=== PATIENT | male | born 1940 | race Hispanic/Latino ===

== ENCOUNTER 2020-10-31 16:54 | Inpatient (IN) | payer MEDICARE, OTHER, SELFPAY ==
[~2020-10-31] VITALS: Ht 165.1 cm; Wt 68.0 kg
[2020-10-31] MEDS ORDERED: CEFTRIAXONE 1G VIAL ONE (17:37)
[2020-10-31] MEDS ORDERED: ACETAMINOPHEN 325 MG TAB ONE (17:37)
[2020-10-31] MEDS ORDERED: 0.9%NACL 1000ML 1,000 ML IV ONE (17:38)
[2020-10-31 17:45] LABS: BASOPHILS % (AUTO) 0.4 % (0.0-5.0); HEMATOCRIT 35.8 % (42-54); LYMPHOCYTES % (AUTO) 12.8 % (21.0-51.0); MEAN CORPUSCULAR HGB CONC 34.6 g/dL (32.0-36.0); MEAN CORPUSCULAR VOLUME 89.5 fL (79-99); MONOCYTES % (AUTO) 10.2 % (3.0-13.0); NEUTROPHILS % (AUTO) 76.3 % (40.0-77.0); PLATELET COUNT (AUTO) 198 K/uL (130-400); RED CELL DISTRIBUTION WIDTH 12.2 % (11.0-15.5); WHITE BLOOD COUNT (AUTO) 11.4 K/uL (4.8-10.8)
[2020-10-31 17:59] LABS: INR 1.03 (0.85-1.15)
[2020-10-31 18:00] LABS: PARTIAL THROMBOPLASTIN TIME 26.4 SEC (26.3-35.5)
[2020-10-31 18:08] LABS: CREATININE 1.5 mg/dL (0.5-1.5); POTASSIUM 4.3 mmol/L (3.5-5.1)
[2020-10-31 18:13] LABS: BILIRUBIN,TOTAL 1.4 mg/dL (0.2-1.0); TOTAL PROTEIN, SERUM 8.7 g/dL (6.0-8.3)
[2020-10-31 18:14] LABS: B-TYPE NATRIURETIC PEPTIDE 30 pg/mL (0-100)
[2020-10-31] MEDS ORDERED: ASPIRIN 325 MG TABLET ONE (19:21)
[2020-11-01] MEDS ORDERED: LACTULOSE 20 GM/30 ML UDCUP PO PRN (00:15)
[2020-11-01] MEDS ORDERED: 0.9%NACL 1000ML 1,000 ML IV SCH (00:15)
[2020-11-01] MEDS ORDERED: ONDANSETRON 4MG INJ IV PRN (00:15)
[2020-11-01] MEDS ORDERED: ACETAMINOPHEN 325 MG TAB PO PRN ×2 (00:15)
[2020-11-01 01:48] LABS: TROPONIN I 0.16 ng/mL (0.00-0.06)
[2020-11-01 04:58] LABS: HEMATOCRIT 35.6 % (42-54); MEAN CORPUSCULAR HEMOGLOBIN 31.7 pg (27.0-33.0); MEAN CORPUSCULAR HGB CONC 35.1 g/dL (32.0-36.0); MEAN CORPUSCULAR VOLUME 90.4 fL (79-99); RED BLOOD CELL COUNT(AUTO) 3.94 MIL/uL (4.50-6.20); RED CELL DISTRIBUTION WIDTH 12.2 % (11.0-15.5); WHITE BLOOD COUNT (AUTO) 11.1 K/uL (4.8-10.8)
[2020-11-01 05:34] LABS: CREATININE 1.3 mg/dL (0.5-1.5); POTASSIUM 4.1 mmol/L (3.5-5.1); TROPONIN I 0.16 ng/mL (0.00-0.06)
[2020-11-01] MEDS ORDERED: SODIUM BICARB 50MEQ 50ML VIAL 150 ML ONE ×2 (05:57→22:21)
[2020-11-01] MEDS ORDERED: DEXTROSE 5%-WATER 1,000 ML IV ONE ×2 (05:58→22:21)
[2020-11-01 08:49] LABS: TROPONIN I 0.19 ng/mL (0.00-0.06)
[2020-11-01] MEDS: METOPROLOL TARTRATE 25 MG TAB PO SCH (09:00)
[2020-11-01] MEDS: FAMOTIDINE 20MG VIAL IV SCH (09:00)
[2020-11-01] MEDS ORDERED: METOPROLOL TARTRATE 25 MG TAB ONE (09:10)
[2020-11-01] MEDS ORDERED: FAMOTIDINE 20MG VIAL IV ONE ×2 (09:10→20:30)
[2020-11-01 09:11] LABS: APPEARANCE,URINE Clear (CLEAR); BILIRUBIN,URINE Negative (NEGATIVE); COLOR,URINE Yellow (YELLOW); GLUCOSE, URINE (UA) Negative (NEGATIVE); KETONES,URINE 40 mg/dL (NEGATIVE); LEUKOCYTE ESTERASE ,URINE Negative (NEGATIVE); NITRATE,URINE Negative (NEGATIVE); OCCULT BLOOD,URINE Trace (NEGATIVE); PH,URINE 6.5 (5.0-8.0); PROTEIN,URINE Negative (NEGATIVE)
[2020-11-01 09:17] LABS: AMPHET/METH SCREEN,URINE NEGATIVE (NEGATIVE); BARBITURATE SCREEN, URINE NEGATIVE (NEGATIVE); BENZODIAZEPINES SCREEN,URINE NEGATIVE (NEGATIVE); CANNABINOID SCREEN,URINE NEGATIVE (NEGATIVE); COCAINE SCREEN,URINE NEGATIVE (NEGATIVE); OPIATE SCREEN,URINE NEGATIVE (NEGATIVE); PHENCYCLIDINE SCREEN,URINE NEGATIVE (NEGATIVE)
[2020-11-01 09:41] LABS: BACTERIA,URINE None Seen /HPF (None Seen); SQUAMOUS EPITHELIAL CELL,UR None Seen /HPF (0-2); WBC,URINE None Seen /HPF (0-1)
[2020-11-01] MEDS ORDERED: LORAZEPAM 2 MG/ML 1 ML VIAL ONE (12:56)
[2020-11-01 17:27] LABS: TROPONIN I 0.29 ng/mL (0.00-0.06)
[2020-11-01] MEDS ORDERED: ACETAMINOPHEN 650 MG SUPPOSITORY RC ONE (17:53)
[2020-11-01] MEDS: DOXYCYCLINE 100MG+NS 250ML 250 ML IV SCH (20:30)
[2020-11-01] MEDS ORDERED: LEVOFLOXACIN 500 MG/D5W 100 ML 100 ML IV SCH (21:00)
[2020-11-01] MEDS: ATORVASTATIN 10 MG TABLET PO SCH (21:00)
[2020-11-01] MEDS ORDERED: LEVOFLOXACIN 500 MG/D5W 100 ML 100 ML ONE (21:02)
[2020-11-01] MEDS ORDERED: DOXYCYCLINE 100MG+NS 250ML 250 ML IV ONE (21:03)
[2020-11-01 22:00] LABS: TROPONIN I 0.41 ng/mL (0.00-0.06)
[2020-11-02] MEDS: SODIUM BICARB 8.4% 50ML SYRING 150 MEQ in DEXTROSE 5%-WATER 1,000 ML IV SCH ×2 (07:30→22:50)
[2020-11-02 07:48] LABS: TROPONIN I 0.79 ng/mL (0.00-0.06)
[2020-11-02] MEDS ORDERED: ASPIRIN 325 MG TABLET ONE (08:15)
[2020-11-02] MEDS ORDERED: FAMOTIDINE 20MG VIAL IV ONE (08:16)
[2020-11-02] MEDS ORDERED: ACETAMINOPHEN 325 MG TAB ONE (08:16)
[2020-11-02] MEDS ORDERED: DOXYCYCLINE 100MG+NS 250ML 250 ML IV ONE ×2 (08:16→20:42)
[2020-11-02] MEDS ORDERED: ACETAMINOPHEN 650 MG SUPPOSITORY RC ONE (08:26)
[2020-11-02] MEDS: FAMOTIDINE 20MG VIAL IV SCH (09:00)
[2020-11-02] MEDS: ASPIRIN 325MG EC TAB PO SCH (09:00)
[2020-11-02] MEDS: METOPROLOL TARTRATE 25 MG TAB PO SCH ×2 (09:00→21:00)
[2020-11-02] MEDS ORDERED: GADODIAMIDE 10 MMOL/20 ML VIAL IV ONE (10:38)
[2020-11-02] MEDS ORDERED: METOPROLOL TARTRATE 25 MG TAB ONE ×2 (12:07→20:43)
[2020-11-02] MEDS ORDERED: 0.9%NACL 1000ML 1,000 ML IV ONE (12:07)
[2020-11-02 13:30] LABS: TROPONIN I 0.92 ng/mL (0.00-0.06)
[2020-11-02 16:45] LABS: TROPONIN I 0.8 ng/mL (0.00-0.06)
[2020-11-02] MEDS ORDERED: ATORVASTATIN 20 MG TABLET ONE (20:42)
[2020-11-02] MEDS: LEVOFLOXACIN 250 MG/D5W 50ML 50 ML IVPB SCH (21:00)
[2020-11-03 00:50] LABS: TROPONIN I 0.7 ng/mL (0.00-0.06)
[2020-11-03] MEDS: FAMOTIDINE 20MG VIAL IV SCH (09:00)
[2020-11-03] MEDS: ASPIRIN 325MG EC TAB PO SCH (09:00)
[2020-11-03] MEDS ORDERED: METOPROLOL TARTRATE 25 MG TAB ONE (09:05)
[2020-11-03] MEDS ORDERED: FAMOTIDINE 20MG VIAL IV ONE (09:05)
[2020-11-03] MEDS ORDERED: ASPIRIN 325 MG TABLET ONE (09:05)
[2020-11-03] MEDS ORDERED: DOXYCYCLINE 100MG+NS 250ML 250 ML IV ONE (09:05)
[2020-11-03 11:57] LABS: HEMATOCRIT 30.8 % (42-54); MEAN CORPUSCULAR HEMOGLOBIN 30.6 pg (27.0-33.0); MEAN CORPUSCULAR HGB CONC 35.1 g/dL (32.0-36.0); MEAN CORPUSCULAR VOLUME 87.3 fL (79-99); RED BLOOD CELL COUNT(AUTO) 3.53 MIL/uL (4.50-6.20); RED CELL DISTRIBUTION WIDTH 11.9 % (11.0-15.5); WHITE BLOOD COUNT (AUTO) 6.7 K/uL (4.8-10.8)
[2020-11-03 12:12] LABS: ALBUMIN 2.8 g/dL (3.5-5.0); BILIRUBIN,TOTAL 0.8 mg/dL (0.2-1.0); CREATININE 1.1 mg/dL (0.5-1.5); POTASSIUM 3.5 mmol/L (3.5-5.1); TOTAL PROTEIN, SERUM 7.1 g/dL (6.0-8.3)
[2020-11-03] MEDS: SODIUM BICARB 8.4% 50ML SYRING 150 MEQ in DEXTROSE 5%-WATER 1,000 ML IV SCH ×3 (14:22→23:34)
[2020-11-03 20:00] VITALS: BP 135/48
[2020-11-03] MEDS: ATORVASTATIN 10 MG TABLET PO SCH ×2 (21:00→21:16)
[2020-11-03] MEDS: METOPROLOL TARTRATE 25 MG TAB PO SCH (21:15)
[2020-11-03] MEDS: LEVOFLOXACIN 250 MG/D5W 50ML 50 ML IVPB SCH (21:16)
[2020-11-03] MEDS ORDERED: QUETIAPINE FUMARATE 25 MG TAB ONE (23:40)
[2020-11-04] VITALS: BP 107/75
[2020-11-04] MEDS: DOXYCYCLINE 100MG+NS 250ML 250 ML IV SCH ×3 (00:09→21:00)
[2020-11-04] MEDS ORDERED: DiphenhydrAMINE HCL 50 MG/ML VIAL ONE (02:14)
[2020-11-04] MEDS ORDERED: HALOPERIDOL INJ 5 MG/ML VIAL ONE (02:14)
[2020-11-04] MEDS: DiphenhydrAMINE HCL 50 MG/ML VIAL IM SCH (02:15)
[2020-11-04 04:00] VITALS: BP 160/70
[2020-11-04 06:06] LABS: BASOPHILS % (AUTO) 0.5 % (0.0-5.0); EOSINOPHILS % (AUTO) 1.2 % (0.0-8.0); HEMATOCRIT 30.7 % (42-54); LYMPHOCYTES % (AUTO) 24.2 % (21.0-51.0); MEAN CORPUSCULAR HEMOGLOBIN 31.5 pg (27.0-33.0); MEAN CORPUSCULAR HGB CONC 35.8 g/dL (32.0-36.0); MONOCYTES % (AUTO) 11.8 % (3.0-13.0); NEUTROPHILS % (AUTO) 62.1 % (40.0-77.0); PLATELET COUNT (AUTO) 222 K/uL (130-400); RED BLOOD CELL COUNT(AUTO) 3.49 MIL/uL (4.50-6.20); RED CELL DISTRIBUTION WIDTH 11.9 % (11.0-15.5); WHITE BLOOD COUNT (AUTO) 5.7 K/uL (4.8-10.8)
[2020-11-04 07:08] LABS: ALBUMIN 2.9 g/dL (3.5-5.0); BILIRUBIN,TOTAL 0.7 mg/dL (0.2-1.0); CREATININE 1.2 mg/dL (0.5-1.5); POTASSIUM 3.9 mmol/L (3.5-5.1); TOTAL PROTEIN, SERUM 7.4 g/dL (6.0-8.3)
[2020-11-04] MEDS: SODIUM BICARB 8.4% 50ML SYRING 150 MEQ in DEXTROSE 5%-WATER 1,000 ML IV SCH ×3 (08:46→17:58)
[2020-11-04] MEDS: ASPIRIN 325MG EC TAB PO SCH (10:47)
[2020-11-04] MEDS: METOPROLOL TARTRATE 25 MG TAB PO SCH ×3 (10:47→21:00)
[2020-11-04] MEDS: FAMOTIDINE 20MG VIAL IV SCH (10:48)
[2020-11-04 20:00] VITALS: BP 149/73
[2020-11-04] MEDS: QUETIAPINE FUMARATE 25 MG TAB PO SCH (21:00)
[2020-11-04] MEDS: LEVOFLOXACIN 250 MG/D5W 50ML 50 ML IVPB SCH (21:00)
[2020-11-04] MEDS: ATORVASTATIN 10 MG TABLET PO SCH (21:01)
[2020-11-04 23:43] VITALS: BP 148/75
[2020-11-05] MEDS: DiphenhydrAMINE HCL 50 MG/ML VIAL IM SCH (03:02)
[2020-11-05] MEDS: SODIUM BICARB 8.4% 50ML SYRING 150 MEQ in DEXTROSE 5%-WATER 1,000 ML IV SCH ×3 (03:10→21:42)
[2020-11-05 06:13] LABS: BASOPHILS % (AUTO) 0.7 % (0.0-5.0); EOSINOPHILS % (AUTO) 2.5 % (0.0-8.0); LYMPHOCYTES % (AUTO) 33.4 % (21.0-51.0); MEAN CORPUSCULAR HEMOGLOBIN 30.6 pg (27.0-33.0); MEAN CORPUSCULAR HGB CONC 34.3 g/dL (32.0-36.0); MONOCYTES % (AUTO) 10.3 % (3.0-13.0); NEUTROPHILS % (AUTO) 52.9 % (40.0-77.0); PLATELET COUNT (AUTO) 245 K/uL (130-400); RED BLOOD CELL COUNT(AUTO) 3.37 MIL/uL (4.50-6.20); RED CELL DISTRIBUTION WIDTH 11.9 % (11.0-15.5)
[2020-11-05 07:12] LABS: ALBUMIN 2.7 g/dL (3.5-5.0); BILIRUBIN,TOTAL 0.7 mg/dL (0.2-1.0); CREATININE 1.2 mg/dL (0.5-1.5); POTASSIUM 3.4 mmol/L (3.5-5.1)
[2020-11-05 07:15] VITALS: BP 115/61
[2020-11-05] MEDS: DOXYCYCLINE 100MG+NS 250ML 250 ML IV SCH ×2 (08:30→21:41)
[2020-11-05] MEDS: METOPROLOL TARTRATE 25 MG TAB PO SCH ×2 (10:25→21:41)
[2020-11-05] MEDS: ASPIRIN 325MG EC TAB PO SCH (10:25)
[2020-11-05] MEDS: FAMOTIDINE 20MG VIAL IV SCH (10:25)
[2020-11-05] MEDS: HALOPERIDOL INJ 5 MG/ML VIAL IM PRN (16:52)
[2020-11-05] MEDS ORDERED: ZIPRASIDONE MESYLATE 20 MG/VIAL IM SCH (17:15)
[2020-11-05] MEDS: ATORVASTATIN 10 MG TABLET PO SCH (21:41)
[2020-11-05] MEDS: LEVOFLOXACIN 250 MG/D5W 50ML 50 ML IVPB SCH (21:41)
[2020-11-05] MEDS: QUETIAPINE FUMARATE 25 MG TAB PO SCH (21:41)
[2020-11-06] VITALS (7 sets, daily range): BP systolic 107–190; BP diastolic 55–78
[2020-11-06] MEDS: HALOPERIDOL INJ 5 MG/ML VIAL IM PRN ×2 (00:20→10:00)
[2020-11-06 04:26] LABS: BASOPHILS % (AUTO) 0.5 % (0.0-5.0); EOSINOPHILS % (AUTO) 1.7 % (0.0-8.0); HEMATOCRIT 29.2 % (42-54); LYMPHOCYTES % (AUTO) 24.1 % (21.0-51.0); MEAN CORPUSCULAR HEMOGLOBIN 31.7 pg (27.0-33.0); MEAN CORPUSCULAR VOLUME 88.2 fL (79-99); MONOCYTES % (AUTO) 9.4 % (3.0-13.0); NEUTROPHILS % (AUTO) 64.1 % (40.0-77.0); PLATELET COUNT (AUTO) 271 K/uL (130-400); RED BLOOD CELL COUNT(AUTO) 3.31 MIL/uL (4.50-6.20); RED CELL DISTRIBUTION WIDTH 11.9 % (11.0-15.5); WHITE BLOOD COUNT (AUTO) 5.8 K/uL (4.8-10.8)
[2020-11-06 05:08] LABS: ALBUMIN 2.9 g/dL (3.5-5.0); BILIRUBIN,TOTAL 0.7 mg/dL (0.2-1.0); CREATININE 1.2 mg/dL (0.5-1.5); POTASSIUM 3.5 mmol/L (3.5-5.1); TOTAL PROTEIN, SERUM 7.2 g/dL (6.0-8.3)
[2020-11-06] MEDS: SODIUM BICARB 8.4% 50ML SYRING 150 MEQ in DEXTROSE 5%-WATER 1,000 ML IV SCH (06:33)
[2020-11-06] MEDS: METOPROLOL TARTRATE 25 MG TAB PO SCH ×2 (08:21→20:53)
[2020-11-06] MEDS: FAMOTIDINE 20MG VIAL IV SCH (08:21)
[2020-11-06] MEDS: ENOXAPARIN SODIUM 30 MG/0.3 ML SQ SCH (08:21)
[2020-11-06] MEDS: ASPIRIN 325MG EC TAB PO SCH (08:21)
[2020-11-06] MEDS: DOXYCYCLINE 100MG+NS 250ML 250 ML IV SCH ×2 (08:21→20:53)
[2020-11-06] MEDS ORDERED: LACTATED RINGERS 1000ML 1,000 ML IV ONE (10:30)
[2020-11-06] MEDS: LACTATED RINGERS 1000ML 1,000 ML IV SCH ×2 (16:30→23:42)
[2020-11-06] MEDS: QUETIAPINE FUMARATE 25 MG TAB PO SCH (20:53)
[2020-11-06] MEDS: ATORVASTATIN 10 MG TABLET PO SCH (20:57)
[2020-11-07 06:07] VITALS: BP 157/55
[2020-11-07] MEDS: LACTATED RINGERS 1000ML 1,000 ML IV SCH (06:25)
[2020-11-07 08:00] VITALS: BP 147/57
[2020-11-07] MEDS: ASPIRIN 325MG EC TAB PO SCH (09:28)
[2020-11-07] MEDS: FAMOTIDINE 20MG VIAL IV SCH (09:29)
[2020-11-07] MEDS: ENOXAPARIN SODIUM 30 MG/0.3 ML SQ SCH (09:30)
[2020-11-07] MEDS: METOPROLOL TARTRATE 25 MG TAB PO SCH ×2 (09:30→20:56)
[2020-11-07 12:00] VITALS: BP 155/65
[2020-11-07] MEDS: DEXTROSE 5%-WATER 1,000 ML IV SCH ×3 (15:49→20:31)
[2020-11-07 16:00] VITALS: BP 160/64
[2020-11-07 19:57] VITALS: BP 149/57
[2020-11-07] MEDS: ATORVASTATIN 10 MG TABLET PO SCH (20:56)
[2020-11-07] MEDS: QUETIAPINE FUMARATE 25 MG TAB PO SCH (20:56)
[2020-11-08] VITALS: BP 145/48
[2020-11-08 03:55] LABS: HEMATOCRIT 28.8 % (42-54); MEAN CORPUSCULAR HEMOGLOBIN 30.3 pg (27.0-33.0); MEAN CORPUSCULAR HGB CONC 34.4 g/dL (32.0-36.0); MEAN CORPUSCULAR VOLUME 88.1 fL (79-99); PLATELET COUNT (AUTO) 330 K/uL (130-400); RED BLOOD CELL COUNT(AUTO) 3.27 MIL/uL (4.50-6.20); WHITE BLOOD COUNT (AUTO) 6.9 K/uL (4.8-10.8)
[2020-11-08 04:00] VITALS: BP 163/68
[2020-11-08 04:14] LABS: BILIRUBIN,TOTAL 0.5 mg/dL (0.2-1.0); CREATININE 1.1 mg/dL (0.5-1.5); POTASSIUM 3.4 mmol/L (3.5-5.1); TOTAL PROTEIN, SERUM 6.9 g/dL (6.0-8.3); TROPONIN I 0.11 ng/mL (0.00-0.06)
[2020-11-08 04:23] LABS: LYMPHOCYTES % (MANUAL) 27 % (22-44); MAN.DIFF COMMENT-IMPRESSION MANUAL DIFFERENTIAL; MONOCYTES % (MANUAL) 7 % (2-9); PLATELET MORPHOLOGY COMMENT ADEQUATE; SEGMENTED NEUTROPHILS % 66 % (40-70)
[2020-11-08] MEDS: DEXTROSE 5%-WATER 1,000 ML IV SCH (05:27)
[2020-11-08 08:00] VITALS: BP 181/68
[2020-11-08] MEDS ORDERED: KCL 20 MEQ ERTAB PO SCH (08:30)
[2020-11-08] MEDS: ASPIRIN 325MG EC TAB PO SCH (10:30)
[2020-11-08] MEDS: FAMOTIDINE 20MG VIAL IV SCH (10:30)
[2020-11-08] MEDS: METOPROLOL TARTRATE 25 MG TAB PO SCH (10:30)
[2020-11-08] MEDS: ENOXAPARIN SODIUM 30 MG/0.3 ML SQ SCH (10:32)
[2020-11-08 11:54] VITALS: BP 187/69
[2020-11-08] MEDS ORDERED: QUET25TA PO (13:40)
[2020-11-08] MEDS ORDERED: METO25 PO (13:40)
[2020-11-08] MEDS ORDERED: ATOR10 PO (13:40)
[2020-11-08] MEDS ORDERED: ASPI-891 PO (13:40)
[2020-11-08 16:00] VITALS: BP 172/89
== END 2020-11-08 18:10 | disposition home or self-care (01) | DRG 557 ==
LOC: EDH 16:54 → EDUNIT# 16:54 → EDHIP 11-01 00:10 → OBSVTOIN 11-01 00:10 → 3CH 11-03 01:14 → EDHIP 11-03 01:22 → 3BH 11-03 11:16
PROVIDERS: ADMIT Internal Medicine; ATTEND Internal Medicine
DX: M62.82 Rhabdomyolysis (principal); G93.41 Metabolic encephalopathy; E87.0 Hyperosmolality and hypernatremia; E87.6 Hypokalemia; W01.0XXA Fall on same level from slipping, tripping and stumbling without subsequent striking against object, initial encounter; I10 Essential (primary) hypertension; E87.8 Other disorders of electrolyte and fluid balance, not elsewhere classified; D72.829 Elevated white blood cell count, unspecified; R77.8 Other specified abnormalities of plasma proteins; Z20.822 Contact with and (suspected) exposure to COVID-19; Z91.81 History of falling; Z79.899 Other long term (current) drug therapy; Z98.49 Cataract extraction status, unspecified eye; Y92.009 Unspecified place in unspecified non-institutional (private) residence as the place of occurrence of the external cause
CPT/HCPCS: 36415; 70450; 70553; 71045; 72125; 80048; 80053; 80305; 81001; 82550; 83605; 83690; 83735; 83874; 83880; 84145; 84484; 85025; 85027; 85610; 85730; 87040; 87426; 93005; 93306; 93356; 97039; A9579; G0378; J0696; J1200; J1630; J1650; J1956; J2060; J3486; J3490; J7030; J7070; J7120; U0003